=== PATIENT | female | born 1935 | race Caucasian/White ===

== ENCOUNTER 2021-06-06 13:43 | Emergency (ER) | payer MEDICARE ==
[2021-06-06 13:49] VITALS: BP 157/75; PULSE 82; RESP 20; TEMP 98.1
--- NOTE | 2021-06-06 14:25 | ED ---
Recheck HPI - General Chief Complaint: Recheck/Abnormal Lab/Rx Stated Complaint: Covid test Time Seen by Provider: 06/06/21 13:52 Source: patient, RN notes reviewed Mode of arrival: ambulatory Limitations: no limitations - History of Present Illness Initial Comments: 85-year-old female presents emergency Department requesting COVID-19 testing. Patient states she is traveling back to [place] and he did not she is a symptomatic. Denies any fevers cough congestion shortness of breath nausea vomiting diarrhea constipation. - Related Data Home Medications Medication Instructions Recorded Confirmed No Known Home Medications 06/06/21 06/06/21 Allergies Allergy/AdvReac Type Severity Reaction Status Date / Time No Known Allergies Allergy Verified 06/06/21 13:49 Review of Systems ROS Statement: Those systems with pertinent positive or pertinent negative responses have been documented in the HPI. ROS Other: All systems not noted in ROS Statement are negative. Past Medical History Past Medical History: No Reported History History of Any Multi-Drug Resistant Organisms: None Reported Past Surgical History: No Surgical Hx Reported Past Psychological History: No Psychological Hx Reported Smoking Status: Never smoker Past Alcohol Use History: None Reported Past Drug Use History: None Reported General Exam Limitations: no limitations General appearance: alert, in no apparent distress Head exam: Present: atraumatic, normocephalic, normal inspection Eye exam: Present: normal appearance, PERRL, EOMI. Absent: scleral icterus, conjunctival injection, periorbital swelling ENT exam: Present: normal exam, mucous membranes moist Neck exam: Present: normal inspection, full ROM. Absent: tenderness, meningismus, lymphadenopathy Respiratory exam: Present: normal lung sounds bilaterally. Absent: respiratory distress, wheezes, rales, rhonchi, stridor Cardiovascular Exam: Present: regular rate, normal rhythm, normal heart sounds. Absent: systolic murmur, diastolic murmur, rubs, gallop, clicks Course Vital Signs 06/06/21 13:45 Temperature 98.1 F Pulse Rate 82 Respiratory 20 Rate Blood Pressure 157/75 O2 Sat by Pulse 99 Oximetry Disposition Clinical Impression: Encounter for laboratory testing for COVID-19 virus Disposition: HOME SELF-CARE Condition: Stable Additional Instructions: Please return to the Emergency Department if symptoms worsen or any other concerns. Is patient prescribed a controlled substance at d/c from ED?: No Referrals: Nonstaff,Physician [Primary Care Provider] - 1-2 days Time of Disposition: 14:25
== END 2021-06-06 14:40 | disposition home or self-care (01) ==
LOC: EC 13:43
DX: Z20.822 Contact with and (suspected) exposure to COVID-19 (principal)
CPT/HCPCS: 87635